=== PATIENT | male | born 1940 | race Caucasian/White ===

== ENCOUNTER 2017-05-07 12:35 | Inpatient (IN) | payer MEDICARE, OTHER ==
[2017-05-07] MEDS ORDERED: Acetaminophen/HYDROcodone 325-5 MG Tab PO ONE (16:05)
[2017-05-07] MEDS ORDERED: [UNRECOGNIZED DRUG - REMARK] TOP PRN (17:10)
[2017-05-07] MEDS ORDERED: [UNRECOGNIZED DRUG - REMARK] TOP PRN (17:10)
[2017-05-07] MEDS ORDERED: Miconazole 2% Crm 30 GM Tube TOP PRN (17:10)
[2017-05-07] MEDS ORDERED: Furosemide 40 MG Tab PO PRN (17:10)
[2017-05-07] MEDS ORDERED: [UNRECOGNIZED DRUG - REMARK] TRDERM PRN (17:10)
[2017-05-07] MEDS ORDERED: [UNRECOGNIZED DRUG - REMARK] TOP PRN (17:10)
[2017-05-07] MEDS ORDERED: Nitroglycerin 0.4 MG Tab.SL SL PRN (17:10)
[2017-05-07] MEDS ORDERED: Albuterol 8 GM Inhaler INH PRN (17:27)
[2017-05-07] MEDS: Atenolol 50 MG Tab PO SCH (19:10)
[2017-05-07] MEDS: Pramipexole 0.5 MG Tab PO SCH (19:10)
[2017-05-07] MEDS: metFORMIN 500 MG Tab PO SCH (19:10)
[2017-05-07] MEDS: Isosorbide Mononitrate 60 MG Tab.ER PO SCH (19:10)
[2017-05-07] MEDS: atorvaSTATin 20 MG Tab PO SCH (19:10)
[2017-05-07] MEDS: Famotidine 20 MG Tab PO SCH (19:10)
[2017-05-07] MEDS: Gabapentin 300 MG Cap PO SCH (19:10)
[2017-05-07] MEDS: Acetaminophen/HYDROcodone 325-5 MG Tab PO PRN (20:58)
[2017-05-08] MEDS: Acetaminophen/HYDROcodone 325-5 MG Tab PO PRN ×3 (02:10→17:42)
[2017-05-08] MEDS: tiZANidine 4 MG Tab PO PRN (04:21)
[2017-05-08] MEDS: Fluticasone Propionate Nasal Spray 16 GM Bottle NASBOTH PRN ×2 (04:21→20:25)
[2017-05-08] MEDS: Isosorbide Mononitrate 60 MG Tab.ER PO SCH ×2 (07:40→20:24)
[2017-05-08] MEDS: Gabapentin 300 MG Cap PO SCH ×2 (07:40→20:24)
[2017-05-08] MEDS: metFORMIN 500 MG Tab PO SCH ×2 (07:40→20:24)
[2017-05-08] MEDS: Pramipexole 0.5 MG Tab PO SCH ×3 (07:40→20:24)
[2017-05-08] MEDS: Ferrous Sulfate 324 MG Tab.EC PO SCH (07:40)
[2017-05-08] MEDS: amLODIPine 2.5 MG Tab PO SCH (07:41)
[2017-05-08] MEDS: Famotidine 20 MG Tab PO SCH ×2 (07:41→20:24)
[2017-05-08] MEDS: glipiZIDE 5 MG Tab PO SCH (07:41)
[2017-05-08] MEDS: Citalopram 10 MG Tab PO SCH (07:41)
[2017-05-08] MEDS: Losartan 100 MG Tab PO SCH (07:41)
[2017-05-08] MEDS: Potassium Chloride 10 MEQ Tab.ER PO SCH (07:41)
[2017-05-08] MEDS: Pantoprazole 40 MG Tab.CR PO SCH (07:57)
[2017-05-08] MEDS: Aspirin 325 MG Tab.EC PO SCH (07:57)
[2017-05-08] MEDS ORDERED: Aspirin 81 MG Tab.EC PO SCH (08:00)
[2017-05-08] MEDS ORDERED: Pantoprazole 40 MG Tab.CR PO SCH (08:00)
[2017-05-08] MEDS: Cefuroxime 250 MG Tab PO SCH ×2 (12:48→17:42)
[2017-05-08] MEDS: Enoxaparin 40 MG/0.4 ML Syringe SUBCUT SCH (15:16)
[2017-05-08] MEDS: [UNRECOGNIZED DRUG - REMARK] PO SCH (15:40)
[2017-05-08] MEDS: atorvaSTATin 20 MG Tab PO SCH (20:24)
[2017-05-08] MEDS: Atenolol 50 MG Tab PO SCH (20:24)
[2017-05-09] MEDS: Acetaminophen/HYDROcodone 325-5 MG Tab PO PRN ×3 (01:18→20:42)
[2017-05-09] MEDS: tiZANidine 4 MG Tab PO PRN ×2 (01:18→20:42)
[2017-05-09] MEDS: Pantoprazole 40 MG Tab.CR PO SCH (06:46)
[2017-05-09] MEDS: Citalopram 10 MG Tab PO SCH (08:11)
[2017-05-09] MEDS: Cefuroxime 250 MG Tab PO SCH ×2 (08:11→17:00)
[2017-05-09] MEDS: Aspirin 325 MG Tab.EC PO SCH (08:12)
[2017-05-09] MEDS: Losartan 100 MG Tab PO SCH (08:12)
[2017-05-09] MEDS: Ferrous Sulfate 324 MG Tab.EC PO SCH (08:12)
[2017-05-09] MEDS: Isosorbide Mononitrate 60 MG Tab.ER PO SCH ×2 (08:13→20:44)
[2017-05-09] MEDS: glipiZIDE 5 MG Tab PO SCH (08:13)
[2017-05-09] MEDS: metFORMIN 500 MG Tab PO SCH ×2 (08:13→20:43)
[2017-05-09] MEDS: Potassium Chloride 10 MEQ Tab.ER PO SCH (08:13)
[2017-05-09] MEDS: Polyethylene Glycol 3350 Powder 17 GM Packet PO SCH (08:14)
[2017-05-09] MEDS: Pramipexole 0.5 MG Tab PO SCH ×3 (08:14→20:44)
[2017-05-09] MEDS: amLODIPine 2.5 MG Tab PO SCH (08:15)
[2017-05-09] MEDS: Gabapentin 300 MG Cap PO SCH ×2 (08:15→20:43)
[2017-05-09] MEDS: Famotidine 20 MG Tab PO SCH ×2 (08:16→20:44)
[2017-05-09] MEDS: Enoxaparin 40 MG/0.4 ML Syringe SUBCUT SCH (11:54)
[2017-05-09] MEDS: atorvaSTATin 20 MG Tab PO SCH (20:43)
[2017-05-09] MEDS: Atenolol 50 MG Tab PO SCH (20:44)
[2017-05-10] MEDS: Pantoprazole 40 MG Tab.CR PO SCH (06:07)
[2017-05-10] MEDS: Cefuroxime 250 MG Tab PO SCH ×2 (07:34→17:18)
[2017-05-10] MEDS: Losartan 100 MG Tab PO SCH (07:35)
[2017-05-10] MEDS: Citalopram 10 MG Tab PO SCH (07:35)
[2017-05-10] MEDS: Ferrous Sulfate 324 MG Tab.EC PO SCH (07:36)
[2017-05-10] MEDS: Aspirin 325 MG Tab.EC PO SCH (07:36)
[2017-05-10] MEDS: metFORMIN 500 MG Tab PO SCH ×2 (07:36→19:42)
[2017-05-10] MEDS: Pramipexole 0.5 MG Tab PO SCH ×2 (07:37→13:31)
[2017-05-10] MEDS: Polyethylene Glycol 3350 Powder 17 GM Packet PO SCH (07:37)
[2017-05-10] MEDS: Potassium Chloride 10 MEQ Tab.ER PO SCH (07:37)
[2017-05-10] MEDS: Isosorbide Mononitrate 60 MG Tab.ER PO SCH ×2 (07:37→19:42)
[2017-05-10] MEDS: glipiZIDE 5 MG Tab PO SCH (07:37)
[2017-05-10] MEDS: amLODIPine 2.5 MG Tab PO SCH (07:38)
[2017-05-10] MEDS: Gabapentin 300 MG Cap PO SCH ×2 (07:38→19:42)
[2017-05-10] MEDS: Famotidine 20 MG Tab PO SCH ×2 (07:39→19:41)
[2017-05-10] MEDS: Acetaminophen/HYDROcodone 325-5 MG Tab PO PRN ×2 (07:42→19:44)
[2017-05-10] MEDS: Fluticasone Propionate Nasal Spray 16 GM Bottle NASBOTH PRN (08:43)
[2017-05-10] MEDS: Enoxaparin 40 MG/0.4 ML Syringe SUBCUT SCH (11:54)
[2017-05-10] MEDS: Atenolol 50 MG Tab PO SCH (19:41)
[2017-05-10] MEDS: atorvaSTATin 20 MG Tab PO SCH (19:42)
[2017-05-10] MEDS: [UNRECOGNIZED DRUG - REMARK] PO SCH (19:42)
[2017-05-11] MEDS: Acetaminophen/HYDROcodone 325-5 MG Tab PO PRN ×4 (00:52→19:51)
[2017-05-11] MEDS: tiZANidine 4 MG Tab PO PRN (05:02)
[2017-05-11] MEDS: amLODIPine 2.5 MG Tab PO SCH (08:25)
[2017-05-11] MEDS: Potassium Chloride 10 MEQ Tab.ER PO SCH (08:25)
[2017-05-11] MEDS: Famotidine 20 MG Tab PO SCH ×2 (08:25→19:50)
[2017-05-11] MEDS: Polyethylene Glycol 3350 Powder 17 GM Packet PO SCH (08:25)
[2017-05-11] MEDS: Pantoprazole 40 MG Tab.CR PO SCH (08:25)
[2017-05-11] MEDS: Isosorbide Mononitrate 60 MG Tab.ER PO SCH ×2 (08:25→19:50)
[2017-05-11] MEDS: Citalopram 10 MG Tab PO SCH (08:26)
[2017-05-11] MEDS: glipiZIDE 5 MG Tab PO SCH (08:26)
[2017-05-11] MEDS: metFORMIN 500 MG Tab PO SCH ×2 (08:26→19:50)
[2017-05-11] MEDS: Cefuroxime 250 MG Tab PO SCH ×2 (08:26→17:54)
[2017-05-11] MEDS: Ferrous Sulfate 324 MG Tab.EC PO SCH (08:26)
[2017-05-11] MEDS: Aspirin 325 MG Tab.EC PO SCH (08:26)
[2017-05-11] MEDS: Losartan 100 MG Tab PO SCH (08:26)
[2017-05-11] MEDS: Gabapentin 300 MG Cap PO SCH ×2 (08:26→19:51)
[2017-05-11] MEDS: [UNRECOGNIZED DRUG - REMARK] PO SCH ×3 (08:28→20:24)
[2017-05-11] MEDS: Enoxaparin 40 MG/0.4 ML Syringe SUBCUT SCH (14:12)
[2017-05-11] MEDS: Atenolol 50 MG Tab PO SCH (19:51)
[2017-05-11] MEDS: atorvaSTATin 20 MG Tab PO SCH (19:51)
[2017-05-12] MEDS: tiZANidine 4 MG Tab PO PRN (00:21)
[2017-05-12] MEDS: Acetaminophen/HYDROcodone 325-5 MG Tab PO PRN ×2 (00:21→16:33)
[2017-05-12] MEDS: Cefuroxime 250 MG Tab PO SCH ×2 (07:58→16:33)
[2017-05-12] MEDS: Famotidine 20 MG Tab PO SCH ×2 (07:58→19:59)
[2017-05-12] MEDS: Isosorbide Mononitrate 60 MG Tab.ER PO SCH ×2 (07:58→19:58)
[2017-05-12] MEDS: Polyethylene Glycol 3350 Powder 17 GM Packet PO SCH (07:58)
[2017-05-12] MEDS: Potassium Chloride 10 MEQ Tab.ER PO SCH (07:58)
[2017-05-12] MEDS: Pantoprazole 40 MG Tab.CR PO SCH (07:58)
[2017-05-12] MEDS: Gabapentin 300 MG Cap PO SCH ×2 (07:59→19:59)
[2017-05-12] MEDS: glipiZIDE 5 MG Tab PO SCH (07:59)
[2017-05-12] MEDS: Ferrous Sulfate 324 MG Tab.EC PO SCH (07:59)
[2017-05-12] MEDS: amLODIPine 2.5 MG Tab PO SCH (07:59)
[2017-05-12] MEDS: Citalopram 10 MG Tab PO SCH (07:59)
[2017-05-12] MEDS: Aspirin 325 MG Tab.EC PO SCH (07:59)
[2017-05-12] MEDS: metFORMIN 500 MG Tab PO SCH ×2 (07:59→19:59)
[2017-05-12] MEDS: Losartan 100 MG Tab PO SCH (07:59)
[2017-05-12] MEDS: [UNRECOGNIZED DRUG - REMARK] PO SCH ×3 (08:00→19:58)
[2017-05-12] MEDS: Enoxaparin 40 MG/0.4 ML Syringe SUBCUT SCH (12:04)
[2017-05-12] MEDS: atorvaSTATin 20 MG Tab PO SCH (19:58)
[2017-05-12] MEDS: Atenolol 50 MG Tab PO SCH (19:58)
[2017-05-12] MEDS: Fluticasone Propionate Nasal Spray 16 GM Bottle NASBOTH PRN (19:59)
[2017-05-13] MEDS: tiZANidine 4 MG Tab PO PRN ×3 (00:16→17:53)
[2017-05-13] MEDS: Acetaminophen/HYDROcodone 325-5 MG Tab PO PRN ×4 (00:16→17:52)
[2017-05-13] MEDS: Pantoprazole 40 MG Tab.CR PO SCH (07:52)
[2017-05-13] MEDS: Polyethylene Glycol 3350 Powder 17 GM Packet PO SCH (09:06)
[2017-05-13] MEDS: Aspirin 325 MG Tab.EC PO SCH (09:06)
[2017-05-13] MEDS: Gabapentin 300 MG Cap PO SCH ×2 (09:07→20:11)
[2017-05-13] MEDS: Citalopram 10 MG Tab PO SCH (09:07)
[2017-05-13] MEDS: Ferrous Sulfate 324 MG Tab.EC PO SCH (09:07)
[2017-05-13] MEDS: Famotidine 20 MG Tab PO SCH ×2 (09:07→20:11)
[2017-05-13] MEDS: Losartan 100 MG Tab PO SCH (09:07)
[2017-05-13] MEDS: glipiZIDE 5 MG Tab PO SCH (09:07)
[2017-05-13] MEDS: amLODIPine 2.5 MG Tab PO SCH (09:08)
[2017-05-13] MEDS: Cefuroxime 250 MG Tab PO SCH ×2 (09:08→17:50)
[2017-05-13] MEDS: Isosorbide Mononitrate 60 MG Tab.ER PO SCH ×2 (09:08→20:11)
[2017-05-13] MEDS: metFORMIN 500 MG Tab PO SCH ×2 (09:09→20:11)
[2017-05-13] MEDS: Potassium Chloride 10 MEQ Tab.ER PO SCH (09:09)
--- NOTE | 2017-05-13 09:09 | PCM.HP ---
H&P History of Present Illness - General Date of Service: 05/07/17 Admit Problem/Dx: Admission Diagnosis/Problem Admission Diagnosis/Problem Cervical vertebral fusion Source of Information: Patient, Old Records History Limitations: Reports: No Limitations - History of Present Illness Initial Comments - Free Text/Narative: Patient presents for swing bed after cervical discectomy and fusion. He underwent surgery on 04-30-2017. Overall pain has improved pain from the waist up and increased ROM in his right arm. Did have some difficulty with swallowing initially but was treated with Decadron. Is tolerating a normal diet and voiding without concern. Complains mostly of low back pain which is also chronic for him. Cervical collar intact. Admitted for ongoing therapy and pain control Location: Reports: Neck Quality: Reports: Ache Severity: Mild Improves with: Reports: Medication Associated Symptoms: Reports: No Other Symptoms Back Pain Score (Numeric/FACES): 4 - Related Data Allergies/Adverse Reactions: Allergies Allergy/AdvReac Type Severity Reaction Status Date / Time diazepam [From Valium] Allergy Fainting Verified 02/11/16 14:00 venom-honey bee Allergy Airway Verified 02/11/16 14:00 Tightness venom-wasp Allergy Airway Verified 02/11/16 14:00 Tightness Home Medications: Home Meds Lansoprazole [Prevacid] 30 mg PO DAILY 08/10/13 [History] Aspirin [Ecotrin] 81 mg PO DAILY 06/22/15 [History] Atenolol 100 mg PO BEDTIME 06/22/15 [History] Citalopram Hydrobromide [Celexa] 20 mg PO DAILY 06/22/15 [History] Docusate Sodium/Sennosides [Senna Plus] 1 tab PO DAILY 06/22/15 [History] Furosemide 20 mg PO DAILY PRN 06/22/15 [History] Gabapentin [Neurontin] 300 mg PO BID 06/22/15 [History] amLODIPine Besylate [Amlodipine Besylate] 5 mg PO DAILY 06/22/15 [History] atorvaSTATin Calcium [Atorvastatin Calcium] 20 mg PO BEDTIME 06/22/15 [History] Isosorbide Mononitrate [Imdur] 60 mg PO BID 06/23/15 [History] Lidocaine 5% [Lidoderm 5%] 700 mg TRDERM DAILY PRN 06/23/15 [History] Losartan [Cozaar] 100 mg PO DAILY 06/23/15 [History] Omeprazole 20 mg PO DAILY 06/23/15 [History] Potassium Chloride 10 meq PO DAILY 06/23/15 [History] Pramipexole Di-HCl [Pramipexole Dihydrochloride] 2 mg PO TID 06/23/15 [History] glipiZIDE [Glucotrol] 5 mg PO DAILY 06/23/15 [History] metFORMIN HCl [Metformin HCl] 500 mg PO BID 06/23/15 [History] Albuterol Sulfate [Proair Respiclick] 2 puff INH Q4H PRN 05/07/17 [History] Aspirin [Ecotrin] 325 mg PO DAILY 05/07/17 [History] Capsaicin [Zostrix 0.025% Crm] 1 applic TOP QID PRN 05/07/17 [History] Cefprozil 500 mg PO BID 05/07/17 [History] Diclofenac Sodium [Voltaren] 4 gm TOP QID PRN 05/07/17 [History] Ferrous Sulfate 325 mg PO DAILY 05/07/17 [History] Fluticasone Propionate [Flonase] 2 sprays NASBOTH BID PRN 05/07/17 [History] Hydrocodone/Acetaminophen [Hydrocodon-Acetaminophen 5-325] 1 tab PO Q4HR PRN [History] Miconazole [Miconazole 2% Crm] 1 applic TOP BID PRN 05/07/17 [History] Nitroglycerin 1 tab SL Q4H PRN 05/07/17 [History] Ranitidine HCl [Ranitidine] 150 mg PO BID 05/07/17 [History] Triamcinolone Acetonide [Triamcinolone Acetonide 0.5%] 1 applic TOP BID PRN [History] tiZANidine 2 mg PO TID PRN 05/07/17 [History] Past Medical History HEENT History: Reports: Cataract Cardiovascular History: Reports: High Cholesterol, Hypertension, NH, SOB on Exertion Other Cardiovascular History: CHF Respiratory History: Reports: SOB Gastrointestinal History: Reports: GERD Genitourinary History: Reports: Renal Calculus Musculoskeletal History: Reports: Arthritis, Back Pain, Chronic, Neck Pain, Chronic, Osteoarthritis Psychiatric History: Reports: Depression Endocrine/Metabolic History: Reports: Diabetes, Type II Dermatologic History: Reports: Other (See Below) Other Dermatologic History: dermatitits - Past Surgical History HEENT Surgical History: Reports: None Respiratory Surgical History: Reports: None GI Surgical History: Reports: Hernia, Abdominal Musculoskeletal Surgical History: Reports: Hip Replacement, Joint Replacement, Shoulder Replacement, Other (See Below) Other Musculoskeletal Surgeries/Procedures:: neck fusion Social & Family History - Family History Family Medical History: Noncontributory - Tobacco Use Smoking Status *Q: Never Smoker Years of Tobacco use: 1 Packs/Tins Daily: 1 Second Hand Smoke Exposure: Yes - Caffeine Use Caffeine Use: Reports: Coffee - Alcohol Use Days Per Week of Alcohol Use: 0 - Recreational Drug Use Recreational Drug Use: No - Living Situation & Occupation Living situation: Reports: , with Spouse Occupation: Retired H&P Review of Systems - Review of Systems: Review Of Systems: See Below General: Reports: Weakness, Fatigue. Denies: Fever, Chills, Malaise HEENT: Reports: No Symptoms Pulmonary: Denies: Shortness of Breath, Cough Cardiovascular: Denies: Chest Pain, Edema, Lightheadedness Gastrointestinal: Denies: Abdominal Pain, Nausea, Vomiting Genitourinary: Reports: No Symptoms Musculoskeletal: Reports: Neck Pain Skin: Reports: Other (incision) Psychiatric: Reports: No Symptoms Exam - Exam Exam: See Below - Vital Signs Vital Signs: Last Vital Signs Temp 98.0 F 05/13/17 07:37 Pulse 51 L 05/13/17 07:37 Resp 20 05/13/17 07:37 BP 150/66 H 05/13/17 07:37 Pulse Ox 98 05/13/17 07:37 Weight: 205 lb 6.4 oz - Exam General: Alert, Oriented HEENT: Mucosa Moist & [place] Neck: Supple, Other (c-collar intact) Lungs: Clear to Auscultation, Normal Respiratory Effort Cardiovascular: Regular Rate, Regular Rhythm GI/Abdominal Exam: Normal Bowel Sounds, Soft, Non-Tender Extremities: Normal Inspection, No Pedal Edema Skin: Warm, Dry, Incision Neuro Extensive - Mental Status: Alert, Oriented x3 - Patient Data Lab Results Last 24 hrs: Laboratory Results - last 24 hr 05/12/17 05/12/17 05/13/17 Range/Units 17:22 20:06 07:33 POC Glucose 133 H 118 H 83 (75-105) mg/dl *Q Meaningful Use (ADM) - VTE *Q VTE Criteria *Q: - Stroke *Q Stroke Criteria *Q: - AMI *Q AMI Criteria *Q: - Problem List (1) Status post discectomy SNOMED Code(s): 505771563 ICD Code: Z98.890 - OTHER SPECIFIED POSTPROCEDURAL STATES Status: Acute Priority: High Current Visit: Yes Problem List Initiated/Reviewed/Updated: Yes Orders Last 24hrs: Active Orders 24 hr Category Date Time Status Hip Min 2V or 3V w Pelvis Lt [CR] Routine Exams 05/13/17 08:58 Ordered Medication Orders Hydrocodone Bitart/Acetaminophen ([place] 325-5 Mg) 1 tab PO Q4H PRN PRN Reason: Pain Last Admin: 05/13/17 00:16 Dose: 1 tab Admin: 05/12/17 16:33 Dose: 1 tab Admin: 05/12/17 00:21 Dose: 1 tab Admin: 05/11/17 19:51 Dose: 1 tab Admin: 05/11/17 14:10 Dose: 1 tab Admin: 05/11/17 05:01 Dose: 1 tab Admin: 05/11/17 00:52 Dose: 1 tab Admin: 05/10/17 19:44 Dose: 1 tab Admin: 05/10/17 07:42 Dose: 1 tab Admin: 05/09/17 20:42 Dose: 1 tab Admin: 05/09/17 08:19 Dose: 1 tab Admin: 05/09/17 01:18 Dose: 1 tab Admin: 05/08/17 17:42 Dose: 1 tab Admin: 05/08/17 11:47 Dose: 1 tab Admin: 05/08/17 02:10 Dose: 1 tab Admin: 05/07/17 20:58 Dose: 1 tab Albuterol (Ventolin Hfa) 0 gm INH Q4H PRN PRN Reason: Shortness of Breath Amlodipine Besylate (Norvasc) 5 mg PO DAILY [facility] Last Admin: 05/12/17 07:59 Dose: 5 mg Admin: 05/11/17 08:25 Dose: 5 mg Admin: 05/10/17 07:38 Dose: 5 mg Admin: 05/09/17 08:15 Dose: 5 mg Admin: 05/08/17 07:41 Dose: 5 mg Aspirin (Ecotrin) 325 mg PO DAILY [facility] Last Admin: 05/12/17 07:59 Dose: 325 mg Admin: 05/11/17 08:26 Dose: 325 mg Admin: 05/10/17 07:36 Dose: 325 mg Admin: 05/09/17 08:12 Dose: 325 mg Admin: 05/08/17 07:57 Dose: 325 mg Atenolol (Tenormin) 100 mg PO BEDTIME [facility] Last Admin: 05/12/17 19:58 Dose: 100 mg Admin: 05/11/17 19:51 Dose: 100 mg Admin: 05/10/17 19:41 Dose: 100 mg Admin: 05/09/17 20:44 Dose: 100 mg Admin: 05/08/17 20:24 Dose: 100 mg Admin: 05/07/17 19:10 Dose: 100 mg Atorvastatin Calcium (Lipitor) 20 mg PO BEDTIME [facility] Last Admin: 05/12/17 19:58 Dose: 20 mg Admin: 05/11/17 19:51 Dose: 20 mg Admin: 05/10/17 19:42 Dose: 20 mg Admin: 05/09/17 20:43 Dose: 20 mg Admin: 05/08/17 20:24 Dose: 20 mg Admin: 05/07/17 19:10 Dose: 20 mg Cefuroxime Axetil (Ceftin) 250 mg PO BIDMEALS [facility] Last Admin: 05/12/17 16:33 Dose: 250 mg Admin: 05/12/17 07:58 Dose: 250 mg Admin: 05/11/17 17:54 Dose: 250 mg Admin: 05/11/17 08:26 Dose: 250 mg Admin: 05/10/17 17:18 Dose: 250 mg Admin: 05/10/17 07:34 Dose: 250 mg Admin: 05/09/17 17:00 Dose: 250 mg Admin: 05/09/17 08:11 Dose: 250 mg Admin: 05/08/17 17:42 Dose: 250 mg Admin: 05/08/17 12:48 Dose: 250 mg Citalopram Hydrobromide (Celexa) 20 mg PO DAILY [facility] Last Admin: 05/12/17 07:59 Dose: 20 mg Admin: 05/11/17 08:26 Dose: 20 mg Admin: 05/10/17 07:35 Dose: 20 mg Admin: 05/09/17 08:11 Dose: 20 mg Admin: 05/08/17 07:41 Dose: 20 mg Enoxaparin Sodium (Lovenox) 40 mg SUBCUT Q24H [facility] Last Admin: 05/12/17 12:04 Dose: 40 mg Admin: 05/11/17 14:12 Dose: 40 mg Admin: 05/10/17 11:54 Dose: 40 mg Admin: 05/09/17 11:54 Dose: 40 mg Admin: 05/08/17 15:16 Dose: 40 mg Famotidine (Pepcid) 20 mg PO BID [facility] Last Admin: 05/12/17 19:59 Dose: 20 mg Admin: 05/12/17 07:58 Dose: 20 mg Admin: 05/11/17 19:50 Dose: 20 mg Admin: 05/11/17 08:25 Dose: 20 mg Admin: 05/10/17 19:41 Dose: 20 mg Admin: 05/10/17 07:39 Dose: 20 mg Admin: 05/09/17 20:44 Dose: 20 mg Admin: 05/09/17 08:16 Dose: 20 mg Admin: 05/08/17 20:24 Dose: 20 mg Admin: 05/08/17 07:41 Dose: 20 mg Admin: 05/07/17 19:10 Dose: 20 mg Ferrous Sulfate (Ferrous Sulfate) 324 mg PO DAILY [facility] Last Admin: 05/12/17 07:59 Dose: 324 mg Admin: 05/11/17 08:26 Dose: 324 mg Admin: 05/10/17 07:36 Dose: 324 mg Admin: 05/09/17 08:12 Dose: 324 mg Admin: 05/08/17 07:40 Dose: 324 mg Fluticasone Propionate (Flonase) 0 gm NASBOTH BID PRN PRN Reason: Congestion Last Admin: 05/12/17 19:59 Dose: 2 spray Admin: 05/10/17 08:43 Dose: 2 spray Admin: 05/08/17 20:25 Dose: 2 spray Admin: 05/08/17 04:21 Dose: 2 spray Furosemide (Lasix) 20 mg PO DAILY PRN PRN Reason: Edema Gabapentin (Neurontin) 300 mg PO BID [facility] Last Admin: 05/12/17 19:59 Dose: 300 mg Admin: 05/12/17 07:59 Dose: 300 mg Admin: 05/11/17 19:51 Dose: 300 mg Admin: 05/11/17 08:26 Dose: 300 mg Admin: 05/10/17 19:42 Dose: 300 mg Admin: 05/10/17 07:38 Dose: 300 mg Admin: 05/09/17 20:43 Dose: 300 mg Admin: 05/09/17 08:15 Dose: 300 mg Admin: 05/08/17 20:24 Dose: 300 mg Admin: 05/08/17 07:40 Dose: 300 mg Admin: 05/07/17 19:10 Dose: 300 mg Glipizide (Glucotrol) 5 mg PO DAILY [facility] Last Admin: 05/12/17 07:59 Dose: 5 mg Admin: 05/11/17 08:26 Dose: 5 mg Admin: 05/10/17 07:37 Dose: 5 mg Admin: 05/09/17 08:13 Dose: 5 mg Admin: 05/08/17 07:41 Dose: 5 mg Isosorbide Mononitrate (Imdur) 60 mg PO BID [facility] Last Admin: 05/12/17 19:58 Dose: 60 mg Admin: 05/12/17 07:58 Dose: 60 mg Admin: 05/11/17 19:50 Dose: 60 mg Admin: 05/11/17 08:25 Dose: 60 mg Admin: 05/10/17 19:42 Dose: 60 mg Admin: 05/10/17 07:37 Dose: 60 mg Admin: 05/09/17 20:44 Dose: 60 mg Admin: 05/09/17 08:13 Dose: 60 mg Admin: 05/08/17 20:24 Dose: 60 mg Admin: 05/08/17 07:40 Dose: 60 mg Admin: 05/07/17 19:10 Dose: 60 mg Losartan Potassium (Cozaar) 100 mg PO DAILY [facility] Last Admin: 05/12/17 07:59 Dose: 100 mg Admin: 05/11/17 08:26 Dose: 100 mg Admin: 05/10/17 07:35 Dose: 100 mg Admin: 05/09/17 08:12 Dose: 100 mg Admin: 05/08/17 07:41 Dose: 100 mg Metformin HCl (Glucophage) 500 mg PO BID [facility] Last Admin: 05/12/17 19:59 Dose: 500 mg Admin: 05/12/17 07:59 Dose: 500 mg Admin: 03/17/18 19:50 Dose: 500 mg Admin: 05/11/17 08:26 Dose: 500 mg Admin: 05/10/17 19:42 Dose: 500 mg Admin: 05/10/17 07:36 Dose: 500 mg Admin: 05/09/17 20:43 Dose: 500 mg Admin: 05/09/17 08:13 Dose: 500 mg Admin: 05/08/17 20:24 Dose: 500 mg Admin: 05/08/17 07:40 Dose: 500 mg Admin: 05/07/17 19:10 Dose: 500 mg Miconazole (Miconazole 2% Crm) 0 gm TOP BID PRN PRN Reason: Rash Nitroglycerin (Nitrostat) 0.4 mg SL Q4H PRN PRN Reason: Chest Pain Pramipexole 1mg Tab (Non Form) 2 each PO TID [facility] Last Admin: 05/12/17 19:58 Dose: 2 each Admin: 05/12/17 14:27 Dose: 2 each Admin: 05/12/17 08:00 Dose: 2 each Admin: 05/11/17 20:24 Dose: 2 each Admin: 05/11/17 14:11 Dose: 2 each Admin: 05/11/17 08:28 Dose: 2 each Admin: 05/10/17 19:42 Dose: 2 each Pantoprazole Sodium (Protonix) 40 mg PO ACBREAKFAST [facility] Last Admin: 05/13/17 07:52 Dose: 40 mg Admin: 05/12/17 07:58 Dose: 40 mg Admin: 05/11/17 08:25 Dose: 40 mg Admin: 05/10/17 06:07 Dose: 40 mg Admin: 05/09/17 06:46 Dose: 40 mg Admin: 05/08/17 07:57 Dose: 40 mg Polyethylene Glycol (Miralax) 17 gm PO DAILY [facility] Last Admin: 05/12/17 07:58 Dose: 17 gm Admin: 05/11/17 08:25 Dose: 17 gm Admin: 05/10/17 07:37 Dose: Not Given Admin: 05/09/17 08:14 Dose: Not Given Potassium Chloride (Klor-Con 10) 10 meq PO DAILY [facility] Last Admin: 05/12/17 07:58 Dose: 10 meq Admin: 05/11/17 08:25 Dose: 10 meq Admin: 05/10/17 07:37 Dose: 10 meq Admin: 05/09/17 08:13 Dose: 10 meq Admin: 05/08/17 07:41 Dose: 10 meq Senna/Docusate Sodium (Senna Plus) 1 tab PO DAILY [facility] Last Admin: 05/12/17 07:58 Dose: 1 tab Admin: 05/11/17 08:25 Dose: 1 tab Admin: 05/10/17 07:39 Dose: 1 tab Admin: 05/09/17 08:16 Dose: 1 tab Admin: 05/08/17 07:40 Dose: 1 tab Tizanidine HCl (Zanaflex) 2 mg PO TID PRN PRN Reason: Muscle Spasm Last Admin: 05/13/17 00:16 Dose: 2 mg Admin: 05/12/17 00:21 Dose: 2 mg Admin: 05/11/17 05:02 Dose: 2 mg Admin: 05/09/17 20:42 Dose: 2 mg Admin: 05/09/17 01:18 Dose: 2 mg Admin: 05/08/17 04:21 Dose: 2 mg Assessment/Plan Comment:: Patient admitted for ongoing physical therapy and pain control. Continue cervical collar. Follow up with neurosurgery in 6 weeks.
[2017-05-13] MEDS: [UNRECOGNIZED DRUG - REMARK] PO SCH ×2 (09:14→13:32)
[2017-05-13] MEDS: Enoxaparin 40 MG/0.4 ML Syringe SUBCUT SCH (12:28)
[2017-05-13] MEDS: atorvaSTATin 20 MG Tab PO SCH (20:11)
[2017-05-13] MEDS: Atenolol 50 MG Tab PO SCH (20:11)
[2017-05-13] MEDS: Pramipexole 0.5 MG Tab PO SCH (20:11)
[2017-05-14] MEDS: Acetaminophen/HYDROcodone 325-5 MG Tab PO PRN ×3 (07:57→20:21)
[2017-05-14] MEDS: Pantoprazole 40 MG Tab.CR PO SCH (07:57)
[2017-05-14] MEDS: metFORMIN 500 MG Tab PO SCH ×2 (07:57→20:21)
[2017-05-14] MEDS: Gabapentin 300 MG Cap PO SCH ×2 (07:57→20:21)
[2017-05-14] MEDS: Potassium Chloride 10 MEQ Tab.ER PO SCH (07:57)
[2017-05-14] MEDS: Isosorbide Mononitrate 60 MG Tab.ER PO SCH ×2 (07:57→20:21)
[2017-05-14] MEDS: Ferrous Sulfate 324 MG Tab.EC PO SCH (07:57)
[2017-05-14] MEDS: Cefuroxime 250 MG Tab PO SCH ×2 (07:58→17:11)
[2017-05-14] MEDS: Citalopram 10 MG Tab PO SCH (07:58)
[2017-05-14] MEDS: glipiZIDE 5 MG Tab PO SCH (07:58)
[2017-05-14] MEDS: Pramipexole 0.5 MG Tab PO SCH ×3 (07:58→20:21)
[2017-05-14] MEDS: Losartan 100 MG Tab PO SCH (07:58)
[2017-05-14] MEDS: amLODIPine 2.5 MG Tab PO SCH (07:58)
[2017-05-14] MEDS: Aspirin 325 MG Tab.EC PO SCH (07:58)
[2017-05-14] MEDS: Famotidine 20 MG Tab PO SCH ×2 (07:59→20:21)
[2017-05-14] MEDS: Polyethylene Glycol 3350 Powder 17 GM Packet PO SCH (07:59)
[2017-05-14] MEDS: Enoxaparin 40 MG/0.4 ML Syringe SUBCUT SCH (12:00)
[2017-05-14] MEDS: Atenolol 50 MG Tab PO SCH (20:21)
[2017-05-14] MEDS: atorvaSTATin 20 MG Tab PO SCH (20:21)
[2017-05-15] MEDS: tiZANidine 4 MG Tab PO PRN ×2 (00:35→12:20)
[2017-05-15] MEDS: Acetaminophen/HYDROcodone 325-5 MG Tab PO PRN ×4 (00:35→17:12)
[2017-05-15] MEDS: Pantoprazole 40 MG Tab.CR PO SCH (06:18)
[2017-05-15] MEDS: Polyethylene Glycol 3350 Powder 17 GM Packet PO SCH (07:49)
[2017-05-15] MEDS: Gabapentin 300 MG Cap PO SCH ×2 (07:49→19:59)
[2017-05-15] MEDS: Ferrous Sulfate 324 MG Tab.EC PO SCH (07:49)
[2017-05-15] MEDS: Cefuroxime 250 MG Tab PO SCH ×2 (07:49→17:12)
[2017-05-15] MEDS: amLODIPine 2.5 MG Tab PO SCH (07:49)
[2017-05-15] MEDS: metFORMIN 500 MG Tab PO SCH ×2 (07:49→20:02)
[2017-05-15] MEDS: Isosorbide Mononitrate 60 MG Tab.ER PO SCH ×2 (07:49→19:59)
[2017-05-15] MEDS: Aspirin 325 MG Tab.EC PO SCH (07:50)
[2017-05-15] MEDS: glipiZIDE 5 MG Tab PO SCH (07:50)
[2017-05-15] MEDS: Citalopram 10 MG Tab PO SCH (07:50)
[2017-05-15] MEDS: Pramipexole 0.5 MG Tab PO SCH ×3 (07:50→19:59)
[2017-05-15] MEDS: Losartan 100 MG Tab PO SCH (07:50)
[2017-05-15] MEDS: Famotidine 20 MG Tab PO SCH ×2 (07:50→19:59)
[2017-05-15] MEDS: Potassium Chloride 10 MEQ Tab.ER PO SCH (07:51)
[2017-05-15] MEDS: Enoxaparin 40 MG/0.4 ML Syringe SUBCUT SCH (12:21)
[2017-05-15] MEDS: atorvaSTATin 20 MG Tab PO SCH (19:59)
[2017-05-15] MEDS: Atenolol 50 MG Tab PO SCH (19:59)
[2017-05-15] MEDS: Nystatin Ointment 15 GM Tube TOP SCH (20:00)
[2017-05-16] MEDS: Acetaminophen/HYDROcodone 325-5 MG Tab PO PRN ×2 (01:41→07:52)
[2017-05-16] MEDS: tiZANidine 4 MG Tab PO PRN (01:41)
[2017-05-16] MEDS: Pantoprazole 40 MG Tab.CR PO SCH (06:19)
[2017-05-16] MEDS: amLODIPine 2.5 MG Tab PO SCH (07:51)
[2017-05-16] MEDS: Pramipexole 0.5 MG Tab PO SCH (07:51)
[2017-05-16] MEDS: Aspirin 325 MG Tab.EC PO SCH (07:51)
[2017-05-16] MEDS: Polyethylene Glycol 3350 Powder 17 GM Packet PO SCH (07:51)
[2017-05-16] MEDS: Gabapentin 300 MG Cap PO SCH (07:52)
[2017-05-16] MEDS: Cefuroxime 250 MG Tab PO SCH (07:52)
[2017-05-16] MEDS: Famotidine 20 MG Tab PO SCH (07:52)
[2017-05-16] MEDS: Losartan 100 MG Tab PO SCH (07:52)
[2017-05-16] MEDS: metFORMIN 500 MG Tab PO SCH (07:52)
[2017-05-16] MEDS: Ferrous Sulfate 324 MG Tab.EC PO SCH (07:52)
[2017-05-16] MEDS: Potassium Chloride 10 MEQ Tab.ER PO SCH (07:53)
[2017-05-16] MEDS: Nystatin Ointment 15 GM Tube TOP SCH (07:53)
[2017-05-16] MEDS: Isosorbide Mononitrate 60 MG Tab.ER PO SCH (07:53)
[2017-05-16] MEDS: Citalopram 10 MG Tab PO SCH (07:53)
[2017-05-16] MEDS: glipiZIDE 5 MG Tab PO SCH (07:53)
[2017-05-16 08:55] VITALS: BP 120/53
[2017-05-16] MEDS: Enoxaparin 40 MG/0.4 ML Syringe SUBCUT SCH (11:58)
== END 2017-05-16 13:30 | disposition home or self-care (01) | DRG 950 ==
LOC: UNDOADMIN 13:25 → CC.MS 13:25
PROVIDERS: ADMIT Family Medicine; ATTEND Family Medicine
DX: Z48.89 Encounter for other specified surgical aftercare (principal); G89.18 Other acute postprocedural pain; R13.19 Other dysphagia; M54.5 Low back pain
CPT/HCPCS: 82962; 97110-GP; 97161-GP; A9270-GY; J1650